=== PATIENT | female | born 1980 | race Caucasian/White ===

== ENCOUNTER 2024-09-23 05:12 | Observation (INO) | payer MEDICARE, OTHER ==
--- NOTE | 2024-09-23 06:07 | ERPHSYRPT ---
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 patient states that sysmptoms started yesterday and have gotten worse and she cannot get comfortable. denies lifting heavy objects or twisting or falling, pt rates pain 10/10. skin w/n/d, pulses normal, denies chest pain, has a productive cough, hypertensive, gait steady, patient doesn't appear to be in any distress at this time. Timing/Duration: yesterday Hx Tetanus, Diphtheria Vaccination/Date Given: No Hx Influenza Vaccination/Date Given: No Hx Pneumococcal Vaccination/Date Given: No <VICTOR MANUEL VILLAGOMEZ - Last Filed: 09/23/24 06:07> <SANTO BURNETT - Last Filed: 09/23/24 09:37> - History of Present Illness Physician History: The patient's had 2 days of what she describes as back pain. It is actually kind of in the epigastrium that radiates all around her trunk. She says that breathing makes it worse especially taking deep breaths then. She says its tight and stabbing it radiates from her low thoracic area up towards her cervical region in the distribution of the erector muscles. She also has some epigastric pain. She describes it as a band going around basically kind of where her diaphragm is. She said she is never had this before. It started about 2 days ago and it seems to have worsened. She does not have any vomiting but does have some occasional nausea. She has not had any diarrhea or anything like that. Eating does not seem to make it worse only deep breaths seem to really intensify the pain. I would not say she is dyspneic. (VICTOR MANUEL VILLAGOMEZ) Allergies/Adverse Reactions: cefaclor [From Ceclor] Allergy (Verified 09/23/24 05:51) Hives Penicillins Allergy (Verified 09/23/24 05:51) Hives Sulfa (Sulfonamide Antibiotics) Allergy (Verified 09/23/24 05:51) Hives Home Medications: Losartan Potassium 25 mg PO DAILY 09/23/24 [History] Propranolol HCl 10 mg PO BID PRN PRN 09/23/24 [History] Travel Risk - International Travel Have you traveled outside of the country in past 3 weeks: No - Emerging Infectious Disease Are you exhibiting symptoms associated with any current EIDs: No <VICTOR MANUEL VILLAGOMEZ - Last Filed: 09/23/24 06:07> - Review of Systems Constitutional: No Symptoms Respiratory: No Symptoms Cardiac: No Symptoms Genitourinary Symptoms: No Symptoms Skin: No Symptoms <VICTOR MANUEL VILLAGOMEZ - Last Filed: 09/23/24 06:07> - Past Medical History Neurological History: Migraines, Seizures ENT History: No Pertinent History Cardiac History: Hypertension, Other Respiratory History: Asthma Endocrine Medical History: Other Musculoskeletal History: No Pertinent History GI Medical History: No Pertinent History History: No Pertinent History Psycho-Social History: Anxiety, Depression, Panic Disorder Female Reproductive Disorders: No Pertinent History Other Medical History: murmer, hysterectomy, pre-diabetic - Past Surgical History Past Surgical History: Yes Neuro Surgical History: No Pertinent History Cardiac: No Pertinent History Respiratory: No Pertinent History Gastrointestinal: No Pertinent History Genitourinary: No Pertinent History Musculoskeletal: No Pertinent History Female Surgical History: Hysterectomy, Section Other Surgical History: x 3, carpal tunnel surgery in 2009, endoscopy 1998 - Female History Hx Last Menstrual Period: 2019 Hx Now: No (hysterectomy) - Social History Smoking Status: Current every day smoker Exposure to second hand smoke: No Drug Use: none - Social Determinants of Health Will the patient participate in the screening: Yes Do you worry about a steady place to live?: No Do you have any problems with any of the following?: No known problems In the past 12 months,have you had to go without utilities?: No Transportation Issues: No Has anyone in your support network made you feel unsafe?: No Have you or anyone in your house had to go w/o enough food: No <VICTOR MANUEL VILLAGOMEZ - Last Filed: 09/23/24 06:07> - Physical Exam General Appearance: no apparent distress Respiratory Exam: normal breath sounds, lungs clear, No chest tenderness, No respiratory distress Cardiovascular Exam: regular rate/rhythm, normal heart sounds Gastrointestinal/Abdomen Exam: soft, tenderness (Tenderness in the epigastrium and the right upper and left upper quadrants) Back Exam: normal inspection Extremity Exam: normal inspection Neurologic Exam: alert, oriented x 3, cooperative, normal mood/affect Skin Exam: normal color, warm, dry SpO2: 98 <VICTOR MANUEL VILLAGOMEZ S. - Last Filed: 09/23/24 06:07> - Nursing Vital Signs Nursing Vital Signs: Initial Vital Signs Temperature 98 F 09/23/24 05:31 Pulse Rate 84 09/23/24 05:31 Respiratory Rate 17 09/23/24 05:31 Blood Pressure 169/99 09/23/24 05:31 O2 Sat by Pulse Oximetry 98 09/23/24 05:31 Pain Scale Pain Intensity [Back] 10 Pain Intensity 4 Ordered Tests: Active Orders 24 hr Category Date Time Status EKG-ER Only STAT Care 09/23/24 06:02 Active ABDOMEN AND PELVIS W CONTRAST [CT] Stat Exams 09/23/24 06:02 Completed CHEST 1 VIEW (PORTABLE) Stat Exams 09/23/24 06:03 Completed CTA CHEST W AND/OR WO [CT] Stat Exams 09/23/24 07:35 Ordered CBC W DIFF Stat Lab 09/23/24 06:28 Completed CMP Stat Lab 09/23/24 06:28 Completed D-DIMER QUANTITATIVE Stat Lab 09/23/24 06:28 Completed LIPASE Stat Lab 09/23/24 06:28 Completed TROPONIN Q4H Lab 09/23/24 06:28 Completed TROPONIN Q4H Lab 09/23/24 10:15 Ordered TROPONIN Q4H Lab 09/23/24 14:15 Ordered UA W/RFX UR CULTURE Stat Lab 09/23/24 07:57 Completed Medication Summary Discontinued Medications Generic Name Dose Route Start Last Admin Trade Name José Luisq PRN Reason Stop Dose Admin Morphine Sulfate 2 mg 09/23/24 07:52 09/23/24 08:01 Morphine Sulfate 2 Mg/Ml Inj IV 09/23/24 07:53 2 mg STAT ONE Administration Morphine Sulfate Confirm 09/23/24 07:54 Morphine Sulfate 2 Mg/Ml Inj Administered 09/23/24 07:55 Dose 2 mg .ROUTE .STK-MED ONE Ondansetron HCl 4 mg 09/23/24 07:52 09/23/24 08:01 Ondansetron Hcl 4 Mg/2 Ml Vial IV 09/23/24 07:53 4 mg STAT ONE Administration Ondansetron HCl Confirm 09/23/24 07:54 Ondansetron Hcl 4 Mg/2 Ml Vial Administered 09/23/24 07:55 Dose 4 mg .ROUTE .STK-[facility] ONE Lab/Rad Data: Laboratory Result Diagrams 09/23/24 06:28 09/23/24 06:28 Laboratory Results 09/23/24 09/23/24 09/23/24 Range/Units 08:15 07:57 06:28 WBC (3.98-10.04) x10^3/uL RBC (3.93-5.22) x10^6/uL Hgb (11.2-15.7) g/dL Hct (34.1-44.9) % MCV (79.4-94.8) fL MCH (25.6-32.2) pg MCHC (32.2-35.5) g/dL RDW (11.7-14.4) % Plt Count (182-369) x10^3/uL MPV (9.4-12.3) fL Gran % (34.0-71.1) % Immature Gran % (Auto) (0.001-0.429) % Nucleat RBC Rel Count (0.00-0.2) % Eos # (Auto) (0.04-0.36) x10^3/uL Immature Gran # (Auto) (0.001-0.031) x10^3u/L Absolute Lymphs (auto) (1.18-3.74) x10^3/uL Absolute Monos (auto) (0.24-0.86) x10^3/uL Absolute Nucleated RBC (0.00-0.012) x10^3u/L Lymphocytes % (19.3-51.7) % Monocytes % (4.7-12.5) % Eosinophils % (0.7-5.8) % Basophils % (0.1-1.2) % Absolute Granulocytes (1.56-6.13) x10^3/uL Basophils # (0.01-0.08) x10^3/uL D-Dimer 0.69 H* (0.0-0.50) mg/L Sodium (135-145) mmol/L Potassium (3.5-5.1) mmol/L Chloride (98-107) mmol/L Carbon Dioxide (22-30) mmol/L Anion Gap (5-15) MEQ/L BUN (7-17) mg/dL Creatinine (0.52-1.04) mg/dL Estimated GFR ML/MIN Glucose (74-106) mg/dL Calcium (8.4-10.2) mg/dL Total Bilirubin (0.2-1.3) mg/dL AST (14-36) U/L ALT (0-35) U/L Alkaline Phosphatase (38-126) U/L Troponin I (0.000-0.033) ng/mL Serum Total Protein (6.3-8.2) g/dL Albumin (3.5-5.0) g/dL Lipase (23-300) U/L Urine Color Yellow (Yellow) Urine Appearance Clear (Clear) Urine pH 7.0 (4.6-8.0) Ur Specific [place] >=1.030 A (1.005-1.030) Urine Protein Negative (Negative) Urine Glucose (UA) Negative (Negative) mg/dL Urine Ketones Negative (Negative) Urine Blood Negative (Negative) Urine Nitrite Negative (Negative) Urine Bilirubin Negative (Negative) Urine Urobilinogen 0.2 (0.2) mg/dL Ur Leukocyte Esterase Negative (Negative) U Hyaline Cast (Auto) NONE SEEN (0-2) /LPF Urine Microscopic RBC 0-2 (0-5) /HPF Urine Microscopic WBC 0-2 (0-5) /HPF Ur Epithelial Cells None Seen (None Seen) /HPF Urine Bacteria None Seen (None Seen) /HPF Urine Culture Reflexed NO (NO) Influenza Type A Ag NEGATIVE (NEGATIVE) Influenza Type B Ag NEGATIVE (NEGATIVE) RSV (PCR) NEGATIVE (NEGATIVE) SARS-CoV-2 (PCR) NEGATIVE (NEGATIVE) 09/23/24 09/23/24 09/23/24 Range/Units 06:28 06:28 06:28 WBC 11.5 H (3.98-10.04) x10^3/uL RBC 4.54 (3.93-5.22) x10^6/uL Hgb 11.7 (11.2-15.7) g/dL Hct 37.1 (34.1-44.9) % MCV 81.7 (79.4-94.8) fL MCH 25.8 (25.6-32.2) pg MCHC 31.5 L (32.2-35.5) g/dL RDW 15.3 H (11.7-14.4) % Plt Count 331 (182-369) x10^3/uL MPV 9.9 (9.4-12.3) fL Gran % 67.5 (34.0-71.1) % Immature Gran % (Auto) 0.3 (0.001-0.429) % Nucleat RBC Rel Count 0.0 (0.00-0.2) % Eos # (Auto) 0.20 (0.04-0.36) x10^3/uL Immature Gran # (Auto) 0.04 H (0.001-0.031) x10^3u/L Absolute Lymphs (auto) 2.52 (1.18-3.74) x10^3/uL Absolute Monos (auto) 0.95 H (0.24-0.86) x10^3/uL Absolute Nucleated RBC 0.00 (0.00-0.012) x10^3u/L Lymphocytes % 21.9 (19.3-51.7) % Monocytes % 8.3 (4.7-12.5) % Eosinophils % 1.7 (0.7-5.8) % Basophils % 0.3 (0.1-1.2) % Absolute Granulocytes 7.75 H (1.56-6.13) x10^3/uL Basophils # 0.04 (0.01-0.08) x10^3/uL D-Dimer (0.0-0.50) mg/L Sodium 139 (135-145) mmol/L Potassium 4.2 (3.5-5.1) mmol/L Chloride 104 (98-107) mmol/L Carbon Dioxide 25 (22-30) mmol/L Anion Gap 13.9 (5-15) MEQ/L BUN 12 (7-17) mg/dL Creatinine 0.53 (0.52-1.04) mg/dL Estimated GFR 115.4 ML/MIN Glucose 100 (74-106) mg/dL Calcium 8.4 (8.4-10.2) mg/dL Total Bilirubin 0.30 (0.2-1.3) mg/dL AST 31 (14-36) U/L ALT 22 (0-35) U/L Alkaline Phosphatase 87 (38-126) U/L Troponin I < 0.012 (0.000-0.033) ng/mL Serum Total Protein 6.6 (6.3-8.2) g/dL Albumin 3.8 (3.5-5.0) g/dL Lipase 191 (23-300) U/L Urine Color (Yellow) Urine Appearance (Clear) Urine pH (4.6-8.0) Ur Specific [place] (1.005-1.030) Urine Protein (Negative) Urine Glucose (UA) (Negative) mg/dL Urine Ketones (Negative) Urine Blood (Negative) Urine Nitrite (Negative) Urine Bilirubin (Negative) Urine Urobilinogen (0.2) mg/dL Ur Leukocyte Esterase (Negative) U Hyaline Cast (Auto) (0-2) /LPF Urine Microscopic RBC (0-5) /HPF Urine Microscopic WBC (0-5) /HPF Ur Epithelial Cells (None Seen) /HPF Urine Bacteria (None Seen) /HPF Urine Culture Reflexed (NO) Influenza Type A Ag (NEGATIVE) Influenza Type B Ag (NEGATIVE) RSV (PCR) (NEGATIVE) SARS-CoV-2 (PCR) (NEGATIVE) <VICTOR MANUEL VILLAGOMEZ - Last Filed: 09/23/24 06:07> <SANTO BURNETT - Last Filed: 09/23/24 09:37> - Progress Progress Note: On the differential diagnosis was biliary colic, reflux, cardiac chest pain, pulmonary embolism, pneumonia 09/23/24 06:07 (VICTOR MANUEL VILLAGOMEZ) 09/23/24 07:55 d dimer elevated - I attempted to order CTA chest for PE r/o, was informed by radiology dept that we would not be allowed to give pt contrast again for 24h still awaiting CT abd/pel scan 09/23/24 08:35 CT abd/pel showed: no acute intra abdominal pathology suspected cholelithiasis, US recommended for better eval moderate hepatomegaly 09/23/24 09:20 I spoke w/ Dr Salgado who is willing to consult on pt's case for possible cholecystitis will again discuss admission w/ hospitalist i spoke w/ Dr Galloway who is willing to accept for obs recommends giving dose of zosyn to cover for possible intra abdominal infection associated w/ cholecystitis 09/23/24 09:34 pt has mild allergy to early generation cephalosporins (hives), will continue w/ zosyn and treat allergic rxn if arises (SANTO BURNETT) Medical Desision Making - Diagnostic Testing Diagnostic test were ordered, analyzed, and reviewed by me: Yes Radiological Interpretation: Reviewed by me, Teleradiologist Report - Risk of complications The pt has a high risk of morbidity or mortality based on: Decision regarding hospitilization or escalation of hosp level of care <SANTO BURNETT - Last Filed: 09/23/24 09:37> <VICTOR MANUEL VILLAGOMEZ - Last Filed: 09/23/24 06:07> - Departure Departure Disposition: Observation Critical Care Time: No <SANTO BURNETT - Last Filed: 09/23/24 09:37> - Departure Clinical Impression: Cholelithiasis Qualifiers: Cholelithiasis location: gallbladder Cholecystitis presence: with cholecystitis Cholecystitis acuity: acute Biliary obstruction: without biliary obstruction Qualified Code(s): K80.00 - Calculus of gallbladder with acute cholecystitis without obstruction Condition: Stable Referrals: ALINA FONSECA MD [Primary Care Provider] - Follow up/PCP as directed
[2024-09-23 06:34] LABS: Absolute Neutrophil Ct (ANC) 7.75 x10^3/uL (1.56-6.13); BASOPHIL % 0.3 % (0.1-1.2); Basophil (Absolute #) 0.04 x10^3/uL (0.01-0.08); Eosinophil % 1.7 % (0.7-5.8); Hematocrit 37.1 % (34.1-44.9); Hemoglobin 11.7 g/dL (11.2-15.7); IMMATURE GRAN # 0.04 x10^3u/L (0.001-0.031); IMMATURE GRAN % 0.3 % (0.001-0.429); Lymphocyte (Absolute #) 2.52 x10^3/uL (1.18-3.74); Lymphocytes % 21.9 % (19.3-51.7); Mean Cell Volume 81.7 fL (79.4-94.8); Mean Corpuscular Hemoglobin 25.8 pg (25.6-32.2); Mean Corpuscular Hgb Concent. 31.5 g/dL (32.2-35.5); Mean Platelet Volume 9.9 fL (9.4-12.3); Monocyte (Absolute #) 0.95 x10^3/uL (0.24-0.86); Monocytes % 8.3 % (4.7-12.5); Neutrophil % 67.5 % (34.0-71.1); Platelet Count 331 x10^3/uL (182-369); Red Blood Count 4.54 x10^6/uL (3.93-5.22); Red Cell Distribution Width 15.3 % (11.7-14.4); White Blood Count 11.5 x10^3/uL (3.98-10.04)
[2024-09-23 06:49] LABS: ALBUMIN 3.8 g/dL (3.5-5.0); ANION GAP 13.9 MEQ/L (5-15); BILIRUBIN,TOTAL 0.3 mg/dL (0.2-1.3); Calcium 8.4 mg/dL (8.4-10.2); Creatinine 1 0.53 mg/dL (0.52-1.04); EST GLOMERULAR FILTRATION RATE 115.4 ML/MIN; Potassium 4.2 mmol/L (3.5-5.1); Total Protein 6.6 g/dL (6.3-8.2)
[2024-09-23] MEDS ORDERED: MORPHINE SULFATE 2 MG INJ ONE (07:54)
[2024-09-23] MEDS ORDERED: Zofran 4 MG/2 ML VIAL ONE (07:54)
[2024-09-23] MEDS: Zofran 4 MG/2 ML VIAL IV ONE (08:01)
[2024-09-23] MEDS: MORPHINE SULFATE 2 MG INJ IV ONE (08:01)
[2024-09-23 08:19] LABS: Appearance Clear (Clear); Bacteria None Seen /HPF (None Seen); Bilirubin Negative (Negative); Blood Negative (Negative); Epithelial Cells None Seen /HPF (None Seen); Glucose, Urine Negative (Negative); Hyaline Casts NONE SEEN /LPF (0-2); Ketones Negative (Negative); Leukocyte Esterase Negative (Negative); Nitrite Negative (Negative); Protein,Urine Dip Negative (Negative); RBC 0-2 /HPF (0-5); Specific Gravity >=1.030 (1.005-1.030); Urobilinogen 0.2 mg/dL (0.2); WBC 0-2 /HPF (0-5)
--- NOTE | 2024-09-23 08:24 | XRAY ---
Indication: Chest and abdomen pain. Comparison: None Portable chest demonstrates normal heart and lungs with incidental small right lower lobe calcified granuloma. Bony thorax intact with mild degenerative changes. No acute findings.
--- NOTE | 2024-09-23 08:36 | XRAY ---
CLINICAL HISTORY: upper abd pain COMPARISON: No prior studies are available for comparison. TECHNIQUE: CT of the abdomen and pelvis was performed with contrast, with the following protocol: axial images with, and reconstructed coronal and sagittal images. 80cc of isovue 370 was administered intravenously. One of the following dose reduction techniques was utilized for this exam: Automated exposure control, adjustment of the mA and/or kV according to patient size, and use of iterative reconstruction. CTDI: 17.73 mGy, DLP: 882.08 mGy-cm. FINDINGS: Abdomen: Liver: Moderate hepatomegaly measuring 19 cm No focal lesions, cysts, or masses were identified. Hepatic vasculature and biliary ducts are unremarkable. Gallbladder and Biliary System: The gallbladder is normally distended with suspected radiolucent calculi. No wall thickening, or pericholecystic fluid were identified. The common bile duct is normal in caliber without dilation. Pancreas: Pancreatic head, body, and tail are visualized and appear normal in size and density. No pancreatic masses or calcifications were noted. The pancreatic duct is not dilated. Spleen: Normal in size, shape, and density. No splenic lesions or masses were identified. Appendix: Is not distinctively seen yet no inflammatory changes is noted in the right iliac fossa. Kidneys and Adrenal Glands: Both kidneys are normal in size, shape, and position. Cortical thickness is within normal limits. No renal calculi or hydronephrosis. Adrenal glands are unremarkable with no evidence of masses or hyperplasia. Pelvis: Urinary Bladder: Normal in contour and wall thickness. No intraluminal lesions were identified. Uterus: is not visualized Ovaries: Not well visualized but no gross abnormalities noted. Peritoneal and Retroperitoneal Structures: No free fluid or abnormal fluid collections were identified within the abdomen or pelvis. No lymphadenopathy was noted. Bowel: The visualized bowel loops are normal in caliber and appearance. No evidence of bowel obstruction or wall thickening. Bones and Soft Tissues: Minimal periaortic and cristina-mesenteric fat stranding likely nonspecific Pelvic bones and soft tissues are unremarkable. No fractures or abnormal masses were identified. Calcified granulomas about two is noted in the right lower lung lobe. IMPRESSION: 1. No acute intra-abdominal pathology. 2. Suspected cholelithiasis, ultrasound is advised for better evaluation. 3. Moderate hepatomegaly. Electronically Signed by: Meryl Fox MD. (09/23/2024 08:30:37 EST)
[2024-09-23 08:58] LABS: INFLUENZA A NEGATIVE (NEGATIVE); INFLUENZA B NEGATIVE (NEGATIVE); RESPIRATORY SYNCTIAL VIRUS NEGATIVE (NEGATIVE); SARS-CoV-2 Xpert Express NEGATIVE (NEGATIVE)
[2024-09-23] MEDS ORDERED: PIPERACILLIN/TAZOBACTAM IV ONE (09:40)
[2024-09-23] MEDS: PIPERACILLIN/TAZOBACTAM 3.375 GM in Sodium Chloride 100ML MINI-BAG PLUS 100 ML IV ONE (09:41)
[2024-09-23] MEDS ORDERED: Sodium Chloride 100ML MINI-BAG PLUS 100 ML IV ONE (09:41)
--- NOTE | 2024-09-23 10:23 | PCM.HP ---
<YENY WATERMAN - Last Filed: 09/23/24 10:17> History of Present Illness - Chief Complaint Chief Complaint: cholelithiasis Date: 09/23/24 History of Present Illness: is a 44 year old female with PMHX of daily smoking, migraines, seizures, hypertension, asthma, anxiety, depression, panic disorder, a heart murmur, obesity, and pre-diabetes. The patient presented to the ER today with a 2-day history of what she describes as back pain, which is actually more localized in the epigastrium and radiates around her trunk. She reports that deep breathing, particularly taking deep breaths, worsens the pain. The pain is described as tight and stabbing, radiating from the low thoracic region up towards the cervical area, following the distribution of the erector muscles. Additionally, she has some epigastric discomfort, which she describes as a band- like sensation around her diaphragm. This is a new symptom for her, as she has never experienced anything like it before. The pain started approximately 2 days ago and has been progressively worsening. The patient denies any vomiting, although she does experience occasional nausea. She has not had diarrhea or similar gastrointestinal symptoms. Eating does not seem to aggravate the pain, with deep breaths being the main trigger for intensifying the discomfort. A CT of the abdomen and pelvis revealed no acute intra-abdominal pathology, but it did suggest suspected cholelithiasis, with an ultrasound recommended for further evaluation. The scan also showed moderate hepatomegaly. Dr. Salgado was consulted by the ER physician and is willing to assist with the patients case for possible cholecystitis. The plan is to initiate IV antibiotics per surgery protocol and start intravenous fluids. However, an ultrasound cannot be performed at this facility over the weekend. - Review of Systems Constitutional: No Fever, No Chills Eyes: No Symptoms Ears, Nose, & Throat: No Symptoms Respiratory: No Cough, No Short Of Breath Cardiac: No Chest Pain, No Edema, No Syncope Abdominal/Gastrointestinal: Abdominal Pain, No Nausea, No Vomiting, No Diarrhea Genitourinary Symptoms: No Dysuria Musculoskeletal: Back Pain, No Neck Pain Skin: No Rash Neurological: No Dizziness, No Focal Weakness, No Sensory Changes Psychological: No Symptoms Endocrine: No Symptoms Hematologic/Lymphatic: No Symptoms Immunological/Allergic: No Symptoms Medications & Allergies Home Medications: Home Medication List Losartan Potassium 25 mg PO DAILY 09/23/24 [History Confirmed 09/23/24] Propranolol HCl 10 mg PO BID PRN PRN 09/23/24 [History Confirmed 09/23/24] Allergies/Adverse Reactions: Allergies Allergy/AdvReac Type Severity Reaction Status Date / Time cefaclor [From [facility]] Allergy Hives Verified 09/23/24 10:00 Penicillins Allergy Hives Verified 09/23/24 10:00 Sulfa (Sulfonamide Allergy Hives Verified 09/23/24 10:00 Antibiotics) - Past Medical History Neurological History: Migraines, Seizures ENT History: No Pertinent History Cardiac History: Hypertension, Other Respiratory History: Asthma Endocrine Medical History: Other Musculoskelatal History: No Pertinent History GI Medical History: No Pertinent History History: No Pertinent History Pyscho-Social History: Anxiety, Depression, Panic Disorder Reproductive Disorders: No Pertinent History Comment: murmer, hysterectomy, pre-diabetic - Female History Hx Last Menstrual Period: 2020 Are you now?: No (hysterectomy) - Past Surgical History Past Surgical History: Yes Neuro Surgical History: No Pertinent History Cardiac History: No Pertinent History Respiratory Surgery: No Pertinent History GI Surgical History: No Pertinent History Genitourinary Surgical Hx: No Pertinent History Musculskeletal Surgical Hx: No Pertinent History Female Surgical History: Hysterectomy, Section Other Surgical History: x 3, carpal tunnel surgery in 2009, endoscopy 1998 - Social History Smoking Status: Current every day smoker Exposure to second hand smoke: No Alcohol: None Drug Use: none - Social Determinants of Health Will the patient participate in the screening: Yes Do you worry about a steady place to live?: No Do you have any problems with any of the following?: No known problems In the past 12 months,have you had to go without utilities?: No Have you or anyone in your house had to go without enough: No Transportation Issues: No Has anyone in your support network made you feel unsafe?: No - Physical Exam Vital Signs: Vital Signs - 24 hr Temp Pulse Resp BP BP Pulse Ox 09/23/24 09:58 98.0 F 76 16 106/55 96 09/23/24 09:30 76 26 H 145/93 96 09/23/24 09:00 89 147/85 93 L 09/23/24 08:30 156/84 94 L 09/23/24 08:03 76 158/88 98 09/23/24 07:44 73 145/85 98 09/23/24 07:40 3 L 18 99 09/23/24 07:33 80 18 99 09/23/24 06:30 157/91 09/23/24 06:08 98 09/23/24 06:00 79 12 156/96 09/23/24 05:31 98 F 84 17 169/99 98 General Appearance: no apparent distress, alert, obese Neurologic Exam: alert, oriented x 3, cooperative, normal mood/affect, nml cerebellar function, nml station & gait, sensation nml, No motor deficits Eye Exam: PERRL/EOMI, eyes nml inspection Ears, Nose, Throat Exam: normal ENT inspection, TMs normal, pharynx normal, moist mucous membranes Neck Exam: normal inspection, non-tender, supple, full range of motion Respiratory Exam: normal breath sounds, lungs clear, No respiratory distress Cardiovascular Exam: regular rate/rhythm, normal heart sounds, normal peripheral pulses, murmur Gastrointestinal/Abdomen Exam: soft, normal bowel sounds, tenderness (RUQ), No mass Back Exam: normal inspection, normal range of motion, No CVA tenderness, No vertebral tenderness Extremity Exam: normal inspection, normal range of motion, pelvis stable Skin Exam: normal color, warm, dry, No rash Lymphatic Exam: No adenopathy Results - Labs Lab/Micro Results: Lab Results-Last 24 Hours 09/23/24 09/23/24 09/23/24 Range/Units 06:28 06:28 06:28 WBC 11.5 H (3.98-10.04) x10^3/uL RBC 4.54 (3.93-5.22) x10^6/uL Hgb 11.7 (11.2-15.7) g/dL Hct 37.1 (34.1-44.9) % MCV 81.7 (79.4-94.8) fL MCH 25.8 (25.6-32.2) pg MCHC 31.5 L (32.2-35.5) g/dL RDW 15.3 H (11.7-14.4) % Plt Count 331 (182-369) x10^3/uL MPV 9.9 (9.4-12.3) fL Gran % 67.5 (34.0-71.1) % Immature Gran % (Auto) 0.3 (0.001-0.429) % Nucleat RBC Rel Count 0.0 (0.00-0.2) % Eos # (Auto) 0.20 (0.04-0.36) x10^3/uL Immature Gran # (Auto) 0.04 H (0.001-0.031) x10^3u/L Absolute Lymphs (auto) 2.52 (1.18-3.74) x10^3/uL Absolute Monos (auto) 0.95 H (0.24-0.86) x10^3/uL Absolute Nucleated RBC 0.00 (0.00-0.012) x10^3u/L Lymphocytes % 21.9 (19.3-51.7) % Monocytes % 8.3 (4.7-12.5) % Eosinophils % 1.7 (0.7-5.8) % Basophils % 0.3 (0.1-1.2) % Absolute Granulocytes 7.75 H (1.56-6.13) x10^3/uL Basophils # 0.04 (0.01-0.08) x10^3/uL D-Dimer (0.0-0.50) mg/L Sodium 139 (135-145) mmol/L Potassium 4.2 (3.5-5.1) mmol/L Chloride 104 (98-107) mmol/L Carbon Dioxide 25 (22-30) mmol/L Anion Gap 13.9 (5-15) MEQ/L BUN 12 (7-17) mg/dL Creatinine 0.53 (0.52-1.04) mg/dL Estimated GFR 115.4 ML/MIN Glucose 100 (74-106) mg/dL Calcium 8.4 (8.4-10.2) mg/dL Total Bilirubin 0.30 (0.2-1.3) mg/dL AST 31 (14-36) U/L ALT 22 (0-35) U/L Alkaline Phosphatase 87 (38-126) U/L Troponin I < 0.012 (0.000-0.033) ng/mL Serum Total Protein 6.6 (6.3-8.2) g/dL Albumin 3.8 (3.5-5.0) g/dL Lipase 191 (23-300) U/L Urine Color (Yellow) Urine Appearance (Clear) Urine pH (4.6-8.0) Ur Specific [place] (1.005-1.030) Urine Protein (Negative) Urine Glucose (UA) (Negative) mg/dL Urine Ketones (Negative) Urine Blood (Negative) Urine Nitrite (Negative) Urine Bilirubin (Negative) Urine Urobilinogen (0.2) mg/dL Ur Leukocyte Esterase (Negative) U Hyaline Cast (Auto) (0-2) /LPF Urine Microscopic RBC (0-5) /HPF Urine Microscopic WBC (0-5) /HPF Ur Epithelial Cells (None Seen) /HPF Urine Bacteria (None Seen) /HPF Urine Culture Reflexed (NO) Influenza Type A Ag (NEGATIVE) Influenza Type B Ag (NEGATIVE) RSV (PCR) (NEGATIVE) SARS-CoV-2 (PCR) (NEGATIVE) 09/23/24 09/23/24 09/23/24 Range/Units 06:28 07:57 08:15 WBC (3.98-10.04) x10^3/uL RBC (3.93-5.22) x10^6/uL Hgb (11.2-15.7) g/dL Hct (34.1-44.9) % MCV (79.4-94.8) fL MCH (25.6-32.2) pg MCHC (32.2-35.5) g/dL RDW (11.7-14.4) % Plt Count (182-369) x10^3/uL MPV (9.4-12.3) fL Gran % (34.0-71.1) % Immature Gran % (Auto) (0.001-0.429) % Nucleat RBC Rel Count (0.00-0.2) % Eos # (Auto) (0.04-0.36) x10^3/uL Immature Gran # (Auto) (0.001-0.031) x10^3u/L Absolute Lymphs (auto) (1.18-3.74) x10^3/uL Absolute Monos (auto) (0.24-0.86) x10^3/uL Absolute Nucleated RBC (0.00-0.012) x10^3u/L Lymphocytes % (19.3-51.7) % Monocytes % (4.7-12.5) % Eosinophils % (0.7-5.8) % Basophils % (0.1-1.2) % Absolute Granulocytes (1.56-6.13) x10^3/uL Basophils # (0.01-0.08) x10^3/uL D-Dimer 0.69 H* (0.0-0.50) mg/L Sodium (135-145) mmol/L Potassium (3.5-5.1) mmol/L Chloride (98-107) mmol/L Carbon Dioxide (22-30) mmol/L Anion Gap (5-15) MEQ/L BUN (7-17) mg/dL Creatinine (0.52-1.04) mg/dL Estimated GFR ML/MIN Glucose (74-106) mg/dL Calcium (8.4-10.2) mg/dL Total Bilirubin (0.2-1.3) mg/dL AST (14-36) U/L ALT (0-35) U/L Alkaline Phosphatase (38-126) U/L Troponin I (0.000-0.033) ng/mL Serum Total Protein (6.3-8.2) g/dL Albumin (3.5-5.0) g/dL Lipase (23-300) U/L Urine Color Yellow (Yellow) Urine Appearance Clear (Clear) Urine pH 7.0 (4.6-8.0) Ur Specific [place] >=1.030 A (1.005-1.030) Urine Protein Negative (Negative) Urine Glucose (UA) Negative (Negative) mg/dL Urine Ketones Negative (Negative) Urine Blood Negative (Negative) Urine Nitrite Negative (Negative) Urine Bilirubin Negative (Negative) Urine Urobilinogen 0.2 (0.2) mg/dL Ur Leukocyte Esterase Negative (Negative) U Hyaline Cast (Auto) NONE SEEN (0-2) /LPF Urine Microscopic RBC 0-2 (0-5) /HPF Urine Microscopic WBC 0-2 (0-5) /HPF Ur Epithelial Cells None Seen (None Seen) /HPF Urine Bacteria None Seen (None Seen) /HPF Urine Culture Reflexed NO (NO) Influenza Type A Ag NEGATIVE (NEGATIVE) Influenza Type B Ag NEGATIVE (NEGATIVE) RSV (PCR) NEGATIVE (NEGATIVE) SARS-CoV-2 (PCR) NEGATIVE (NEGATIVE) - Radiology Impressions Radiology Exams & Impressions: Radiology Procedures Category Date Time Status ABDOMEN AND PELVIS W CONTRAST [CT] Stat Exams 09/23/24 06:02 Completed CHEST 1 VIEW (PORTABLE) Stat Exams 09/23/24 06:03 Completed CHEST WITH CONTRAST [CT] Routine Exams 09/24/24 08:00 Ordered Assessment/Plan (1) Cholelithiasis Current Visit: Yes Status: Acute Qualifiers: Cholelithiasis location: gallbladder Cholecystitis presence: with cholecystitis Cholecystitis acuity: acute Biliary obstruction: without biliary obstruction Qualified Code(s): K80.00 - Calculus of gallbladder with acute cholecystitis without obstruction Assessment & Plan: - As seen on CT abd/pelvis - WBC 11.5 - GS consulted in ER- will see pt tomorrow per ER nurse - IV antibiotics and IVF - Possible US tomorrow if not taken to surgery today - IV pain meds PRN - IV antiemetics - NPO after midnight - Clear liquid diet for now - CBC, CMP reviewed - Pt received Zosyn in ER but is allergic- no allergic reaction so far- nurse to continue to monitor. (2) Hepatomegaly Current Visit: Yes Status: Acute Assessment & Plan: - as seen on CT - F/U OP with PCP for further evaluation - AST/ ALT WNL Code(s): R16.0 - HEPATOMEGALY, NOT ELSEWHERE CLASSIFIED (3) D-dimer, elevated Current Visit: Yes Status: Acute Assessment & Plan: - D-Dimer 0.69 - CT chest with PE protocol in AM -as she had contrast today and cannot have another imaging with contrast per radiology protocol Code(s): R79.89 - OTHER SPECIFIED ABNORMAL FINDINGS OF BLOOD CHEMISTRY (4) Depression with anxiety Current Visit: Yes Status: Chronic Assessment & Plan: - Stopped taking Vraylar d/t cost - Has an upcoming appointment with PCP and will discuss - Also willing to go to [facility] Code(s): F41.8 - OTHER SPECIFIED ANXIETY DISORDERS (5) Migraines Current Visit: Yes Status: Chronic Assessment & Plan: - continue propanolol - Pt reports + H/A today Code(s): G43.909 - MIGRAINE, UNSP, NOT INTRACTABLE, WITHOUT STATUS MIGRAINOSUS (6) Seizures Current Visit: Yes Status: Chronic Assessment & Plan: - Pt reports she has not had a seizure since she was young and is not taking medication for this dx Code(s): R56.9 - UNSPECIFIED CONVULSIONS (7) HTN (hypertension) Current Visit: Yes Status: Chronic Assessment & Plan: - BP stable - Continue home med Code(s): I10 - ESSENTIAL (PRIMARY) HYPERTENSION (8) Panic disorder Current Visit: Yes Status: Chronic Assessment & Plan: - see depression/anxiety plan above Code(s): F41.0 - PANIC DISORDER [EPISODIC PAROXYSMAL ANXIETY] (9) Obesity (BMI 30.0-34.9) Current Visit: Yes Status: Chronic Assessment & Plan: - advised diet and exercise control Code(s): E66.811 - OBESITY, CLASS 1 (10) Smoker Current Visit: Yes Status: Chronic Assessment & Plan: - Advised cessation - Nicotine patch VTE: SCD's PPI: protonix Next of KIN: S/O D/C plan: 1-2 days Code status: Full Code(s): F17.200 - NICOTINE DEPENDENCE, UNSPECIFIED, UNCOMPLICATED <JAIDEN MARIEE - Last Filed: 09/23/24 18:45> History of Present Illness - Chief Complaint History of Present Illness: is a 44 year old female. - Physical Exam Vital Signs: Vital Signs - 24 hr Temp Pulse Resp BP BP Pulse Ox 09/23/24 16:00 97.6 F 70 18 140/76 96 09/23/24 12:00 97.9 F 68 15 124/72 97 09/23/24 09:58 98.0 F 76 16 106/55 96 09/23/24 09:30 76 26 H 145/93 96 09/23/24 09:00 89 147/85 93 L 09/23/24 08:30 156/84 94 L 09/23/24 08:03 76 158/88 98 09/23/24 07:44 73 145/85 98 09/23/24 07:40 3 L 18 99 09/23/24 07:33 80 18 99 09/23/24 06:30 157/91 09/23/24 06:08 98 09/23/24 06:00 79 12 156/96 09/23/24 05:31 98 F 84 17 169/99 98 Results - Labs Lab/Micro Results: Lab Results-Last 24 Hours 02/23/25 02/23/25 02/23/25 Range/Units 06:28 06:28 06:28 WBC 11.5 H (3.98-10.04) x10^3/uL RBC 4.54 (3.93-5.22) x10^6/uL Hgb 11.7 (11.2-15.7) g/dL Hct 37.1 (34.1-44.9) % MCV 81.7 (79.4-94.8) fL MCH 25.8 (25.6-32.2) pg MCHC 31.5 L (32.2-35.5) g/dL RDW 15.3 H (11.7-14.4) % Plt Count 331 (182-369) x10^3/uL MPV 9.9 (9.4-12.3) fL Gran % 67.5 (34.0-71.1) % Immature Gran % (Auto) 0.3 (0.001-0.429) % Nucleat RBC Rel Count 0.0 (0.00-0.2) % Eos # (Auto) 0.20 (0.04-0.36) x10^3/uL Immature Gran # (Auto) 0.04 H (0.001-0.031) x10^3u/L Absolute Lymphs (auto) 2.52 (1.18-3.74) x10^3/uL Absolute Monos (auto) 0.95 H (0.24-0.86) x10^3/uL Absolute Nucleated RBC 0.00 (0.00-0.012) x10^3u/L Lymphocytes % 21.9 (19.3-51.7) % Monocytes % 8.3 (4.7-12.5) % Eosinophils % 1.7 (0.7-5.8) % Basophils % 0.3 (0.1-1.2) % Absolute Granulocytes 7.75 H (1.56-6.13) x10^3/uL Basophils # 0.04 (0.01-0.08) x10^3/uL D-Dimer (0.0-0.50) mg/L Sodium 139 (135-145) mmol/L Potassium 4.2 (3.5-5.1) mmol/L Chloride 104 (98-107) mmol/L Carbon Dioxide 25 (22-30) mmol/L Anion Gap 13.9 (5-15) MEQ/L BUN 12 (7-17) mg/dL Creatinine 0.53 (0.52-1.04) mg/dL Estimated GFR 115.4 ML/MIN Glucose 100 (74-106) mg/dL Calcium 8.4 (8.4-10.2) mg/dL Total Bilirubin 0.30 (0.2-1.3) mg/dL AST 31 (14-36) U/L ALT 22 (0-35) U/L Alkaline Phosphatase 87 (38-126) U/L Troponin I < 0.012 (0.000-0.033) ng/mL Serum Total Protein 6.6 (6.3-8.2) g/dL Albumin 3.8 (3.5-5.0) g/dL Lipase 191 (23-300) U/L Urine Color (Yellow) Urine Appearance (Clear) Urine pH (4.6-8.0) Ur Specific [place] (1.005-1.030) Urine Protein (Negative) Urine Glucose (UA) (Negative) mg/dL Urine Ketones (Negative) Urine Blood (Negative) Urine Nitrite (Negative) Urine Bilirubin (Negative) Urine Urobilinogen (0.2) mg/dL Ur Leukocyte Esterase (Negative) U Hyaline Cast (Auto) (0-2) /LPF Urine Microscopic RBC (0-5) /HPF Urine Microscopic WBC (0-5) /HPF Ur Epithelial Cells (None Seen) /HPF Urine Bacteria (None Seen) /HPF Urine Culture Reflexed (NO) Influenza Type A Ag (NEGATIVE) Influenza Type B Ag (NEGATIVE) RSV (PCR) (NEGATIVE) SARS-CoV-2 (PCR) (NEGATIVE) 09/23/24 09/23/24 09/23/24 Range/Units 06:28 07:57 08:15 WBC (3.98-10.04) x10^3/uL RBC (3.93-5.22) x10^6/uL Hgb (11.2-15.7) g/dL Hct (34.1-44.9) % MCV (79.4-94.8) fL MCH (25.6-32.2) pg MCHC (32.2-35.5) g/dL RDW (11.7-14.4) % Plt Count (182-369) x10^3/uL MPV (9.4-12.3) fL Gran % (34.0-71.1) % Immature Gran % (Auto) (0.001-0.429) % Nucleat RBC Rel Count (0.00-0.2) % Eos # (Auto) (0.04-0.36) x10^3/uL Immature Gran # (Auto) (0.001-0.031) x10^3u/L Absolute Lymphs (auto) (1.18-3.74) x10^3/uL Absolute Monos (auto) (0.24-0.86) x10^3/uL Absolute Nucleated RBC (0.00-0.012) x10^3u/L Lymphocytes % (19.3-51.7) % Monocytes % (4.7-12.5) % Eosinophils % (0.7-5.8) % Basophils % (0.1-1.2) % Absolute Granulocytes (1.56-6.13) x10^3/uL Basophils # (0.01-0.08) x10^3/uL D-Dimer 0.69 H* (0.0-0.50) mg/L Sodium (135-145) mmol/L Potassium (3.5-5.1) mmol/L Chloride (98-107) mmol/L Carbon Dioxide (22-30) mmol/L Anion Gap (5-15) MEQ/L BUN (7-17) mg/dL Creatinine (0.52-1.04) mg/dL Estimated GFR ML/MIN Glucose (74-106) mg/dL Calcium (8.4-10.2) mg/dL Total Bilirubin (0.2-1.3) mg/dL AST (14-36) U/L ALT (0-35) U/L Alkaline Phosphatase (38-126) U/L Troponin I (0.000-0.033) ng/mL Serum Total Protein (6.3-8.2) g/dL Albumin (3.5-5.0) g/dL Lipase (23-300) U/L Urine Color Yellow (Yellow) Urine Appearance Clear (Clear) Urine pH 7.0 (4.6-8.0) Ur Specific [place] >=1.030 A (1.005-1.030) Urine Protein Negative (Negative) Urine Glucose (UA) Negative (Negative) mg/dL Urine Ketones Negative (Negative) Urine Blood Negative (Negative) Urine Nitrite Negative (Negative) Urine Bilirubin Negative (Negative) Urine Urobilinogen 0.2 (0.2) mg/dL Ur Leukocyte Esterase Negative (Negative) U Hyaline Cast (Auto) NONE SEEN (0-2) /LPF Urine Microscopic RBC 0-2 (0-5) /HPF Urine Microscopic WBC 0-2 (0-5) /HPF Ur Epithelial Cells None Seen (None Seen) /HPF Urine Bacteria None Seen (None Seen) /HPF Urine Culture Reflexed NO (NO) Influenza Type A Ag NEGATIVE (NEGATIVE) Influenza Type B Ag NEGATIVE (NEGATIVE) RSV (PCR) NEGATIVE (NEGATIVE) SARS-CoV-2 (PCR) NEGATIVE (NEGATIVE) 09/23/24 09/23/24 Range/Units 10:30 14:44 WBC (3.98-10.04) x10^3/uL RBC (3.93-5.22) x10^6/uL Hgb (11.2-15.7) g/dL Hct (34.1-44.9) % MCV (79.4-94.8) fL MCH (25.6-32.2) pg MCHC (32.2-35.5) g/dL RDW (11.7-14.4) % Plt Count (182-369) x10^3/uL MPV (9.4-12.3) fL Gran % (34.0-71.1) % Immature Gran % (Auto) (0.001-0.429) % Nucleat RBC Rel Count (0.00-0.2) % Eos # (Auto) (0.04-0.36) x10^3/uL Immature Gran # (Auto) (0.001-0.031) x10^3u/L Absolute Lymphs (auto) (1.18-3.74) x10^3/uL Absolute Monos (auto) (0.24-0.86) x10^3/uL Absolute Nucleated RBC (0.00-0.012) x10^3u/L Lymphocytes % (19.3-51.7) % Monocytes % (4.7-12.5) % Eosinophils % (0.7-5.8) % Basophils % (0.1-1.2) % Absolute Granulocytes (1.56-6.13) x10^3/uL Basophils # (0.01-0.08) x10^3/uL D-Dimer (0.0-0.50) mg/L Sodium (135-145) mmol/L Potassium (3.5-5.1) mmol/L Chloride (98-107) mmol/L Carbon Dioxide (22-30) mmol/L Anion Gap (5-15) MEQ/L BUN (7-17) mg/dL Creatinine (0.52-1.04) mg/dL Estimated GFR ML/MIN Glucose (74-106) mg/dL Calcium (8.4-10.2) mg/dL Total Bilirubin (0.2-1.3) mg/dL AST (14-36) U/L ALT (0-35) U/L Alkaline Phosphatase (38-126) U/L Troponin I < 0.012 < 0.012 (0.000-0.033) ng/mL Serum Total Protein (6.3-8.2) g/dL Albumin (3.5-5.0) g/dL Lipase (23-300) U/L Urine Color (Yellow) Urine Appearance (Clear) Urine pH (4.6-8.0) Ur Specific [place] (1.005-1.030) Urine Protein (Negative) Urine Glucose (UA) (Negative) mg/dL Urine Ketones (Negative) Urine Blood (Negative) Urine Nitrite (Negative) Urine Bilirubin (Negative) Urine Urobilinogen (0.2) mg/dL Ur Leukocyte Esterase (Negative) U Hyaline Cast (Auto) (0-2) /LPF Urine Microscopic RBC (0-5) /HPF Urine Microscopic WBC (0-5) /HPF Ur Epithelial Cells (None Seen) /HPF Urine Bacteria (None Seen) /HPF Urine Culture Reflexed (NO) Influenza Type A Ag (NEGATIVE) Influenza Type B Ag (NEGATIVE) RSV (PCR) (NEGATIVE) SARS-CoV-2 (PCR) (NEGATIVE) - Radiology Impressions Radiology Exams & Impressions: Radiology Procedures Category Date Time Status ABDOMEN AND PELVIS W CONTRAST [CT] Stat Exams 09/23/24 06:02 Completed CHEST 1 VIEW (PORTABLE) Stat Exams 09/23/24 06:03 Completed CHEST WITH CONTRAST [CT] Routine Exams 09/24/24 08:00 Ordered GALLBLADDER [US] Routine Exams 09/24/24 08:00 Ordered JORGE Encounter - JORGE Encounter Attestation JORGE Encounter Attestation: "RylyseenanddavisGATO Burns andaceiscussed pertinent aspects of their care with Yeny Shah agree with the history, physical exam (any modifications based on my personal exam will be noted below), assessment, and plan as outlined in original note. Please see immediately below for my summary of findings and additional assessment and plan along with any meaningful corrections/explanations to the Subjective/Objective portions of the JORGE note will be noted." My portion of the encounter took place via telemedicine. -Patient presenting with RUQ and back pain with mild leukocytosis. Cholelithiasis seen on CT. Gallbladder US could not be done on the weekend for further evaluation. Surgery consulted, recommend cholecystectomy which will be performed tomorrow. Continue levaquin/flagyl.
[2024-09-23] MEDS ORDERED: Inderal PO PRN (10:52)
[2024-09-23] MEDS: Lactated Ringers 1,000 ML IV SCH (11:18)
[2024-09-23] MEDS: Nicoderm CQ 21 MG TOP SCH (11:19)
[2024-09-23] MEDS: Levaquin 250MG/50ML D5W 250 MG/50 ML BAG IV SCH (11:19)
[2024-09-23] MEDS: MORPHINE SULFATE 2 MG INJ IV PRN (11:19)
[2024-09-23] MEDS: Zofran 4 MG/2 ML VIAL IV PRN (11:19)
[2024-09-23] MEDS: Cozaar 50 MG PO SCH (11:20)
[2024-09-23] MEDS: Protonix 20MG Tablet PO SCH (11:20)
[2024-09-23] MEDS: Levofloxacin 500MG/100ML D5W 500 MG/100 ML BAG IV SCH (11:22)
[2024-09-23] MEDS: FLAGYL 500 MG IVPB 500 MG/100 ML BAG IV SCH (15:49)
[2024-09-23] MEDS: TYLENOL 325 MG PO PRN (16:20)
[2024-09-24 05:07] LABS: Hematocrit 32.5 % (34.1-44.9); Hemoglobin 10.1 g/dL (11.2-15.7); Mean Cell Volume 81.7 fL (79.4-94.8); Mean Corpuscular Hemoglobin 25.4 pg (25.6-32.2); Mean Corpuscular Hgb Concent. 31.1 g/dL (32.2-35.5); Mean Platelet Volume 10.7 fL (9.4-12.3); Platelet Count 301 x10^3/uL (182-369); Red Blood Count 3.98 x10^6/uL (3.93-5.22); Red Cell Distribution Width 15.3 % (11.7-14.4); White Blood Count 8.4 x10^3/uL (3.98-10.04)
[2024-09-24 05:21] LABS: ALBUMIN 3.5 g/dL (3.5-5.0); BILIRUBIN,TOTAL 0.4 mg/dL (0.2-1.3); Calcium 8.6 mg/dL (8.4-10.2); Creatinine 1 0.51 mg/dL (0.52-1.04); EST GLOMERULAR FILTRATION RATE 116.5 ML/MIN; Potassium 4.2 mmol/L (3.5-5.1); Total Protein 6.5 g/dL (6.3-8.2)
[2024-09-24 07:36] VITALS: RESP 16
--- NOTE | 2024-09-24 09:02 | CONS ---
HISTORY OF PRESENT ILLNESS: The patient has had a couple days' complaint of midback pain, moves up and down, bilateral ribcage. She was coughing a little bit before. Her had the flu. Apparently, the patient was negative for the flu in the ER. She had a little bit of nausea but no real vomiting. No diarrhea. Mostly back pain. Occasional nausea. This has been going on for a couple days. PAST MEDICAL HISTORY: She has hypertension. She is a smoker. HOME MEDICATIONS: She has been on losartan, propranolol in the past. ALLERGIES: Ceclor, sulfa, and penicillin. PAST SURGICAL HISTORY: She had and carpal tunnel in the past. She had some endoscopy in the past. She had hysterectomy in the past. SOCIAL HISTORY: Smoker, 1 pack per day. Denies alcohol abuse. FAMILY HISTORY: Stroke, has some hypertension. REVIEW OF SYSTEMS: Twelve systems reviewed. Mainly the back pain. Not really having any significant abdominal pain. Some in low back, radiates upward. PHYSICAL EXAMINATION: VITAL SIGNS: Stable. Temperature 98, blood pressure 169/99, pulse 84. She has a history of hypertension. HEENT: Sclerae anicteric. Extraocular movements intact. Oral mucous membranes moist. NECK: No JVD. CARDIOVASCULAR: Regular rate and rhythm. RESPIRATORY: Equal excursion, nonlabored breathing. ABDOMEN: Soft. She does not seem to have specific tenderness in the right upper quadrant on my exam. No peritoneal signs. BACK: She is having pain in her back. SKIN: Dry. EXTREMITIES: No significant edema. NEUROLOGIC: Alert. PSYCHIATRIC: Appropriate mood and affect. LABORATORY DATA AND TESTS: CT scan films were reviewed. Radiologist did not found any acute process, possible cholelithiasis. Ultrasound is pending. No free air or free fluid. White count 11, hemoglobin 11.7, platelets 381,000. Her liver function tests were reportedly unremarkable. She does have hepatosplenomegaly on ultrasound. She may or may not have any gallstones. They recommended an ultrasound. She also has CT of the chest pending to rule out PE, to be done tomorrow apparently. IMPRESSION: Back pain, unclear etiology. Unsure whether she could possibly have some gallstones on CT. Ultrasound is pending. She also has a CT. The pain is mainly when she has deep inspiration, did not appear to be affected by eating. She does have an ultrasound pending. She has a CT of the chest because she had an elevated D-dimer. CT chest pending tomorrow to evaluate for PE. If her CT is negative for PE and she shows some cholelithiasis, would reevaluate her. Consider if she is a candidate, considering cholecystectomy this admission. If the ultrasound does not show any stones, we need to continue medical management. If the CT is negative for PE and she is having ultrasound, could consider doing a HIDA later in the week for further workup if she failed to improve. Otherwise, continue medical management at this point. We will have her n.p.o. after midnight and await her abdominal ultrasound, CT of the chest tomorrow.
--- NOTE | 2024-09-24 09:26 | PCM.NOTE ---
Date and Time: 09/24/24 0921 Subjective Assessment: 09/23/23 is a 44 year old female with PMHX of daily smoking, migraines, seizures, hypertension, asthma, anxiety, depression, panic disorder, a heart murmur, obesity, and pre-diabetes. The patient presented to the ER today with a 2-day history of what she describes as back pain, which is actually more localized in the epigastrium and radiates around her trunk. She reports that deep breathing, particularly taking deep breaths, worsens the pain. The pain is described as tight and stabbing, radiating from the low thoracic region up towards the cervical area, following the distribution of the erector muscles. Additionally, she has some epigastric discomfort, which she describes as a band- like sensation around her diaphragm. This is a new symptom for her, as she has never experienced anything like it before. The pain started approximately 2 days ago and has been progressively worsening. The patient denies any vomiting, although she does experience occasional nausea. She has not had diarrhea or similar gastrointestinal symptoms. Eating does not seem to aggravate the pain, with deep breaths being the main trigger for intensifying the discomfort. A CT of the abdomen and pelvis revealed no acute intra-abdominal pathology, but it did suggest suspected cholelithiasis, with an ultrasound recommended for further evaluation. The scan also showed moderate hepatomegaly. Dr. Salgado was consulted by the ER physician and is willing to assist with the patients case for possible cholecystitis. The plan is to initiate IV antibiotics per surgery protocol and start intravenous fluids. However, an ultrasound cannot be performed at this facility over the weekend. 09/24/24 Pt resting in bed. She continues to have abd pain 6/10, sharp and aching under rib cage BL. Pain meds help, moving makes it worse. She is to have a CT chest with PE protocol today to r/o PE as d-dimer slightly elevated on admission. She ernesto also have a GB US today. After those 2 test surgery to consider cholecystectomy. Continue IV fluids, IV antibiotics, and IV narcotic pain meds PRN. - Review of Systems Constitutional: No Fever, No Chills Eyes: No Symptoms Ears, Nose, & Throat: No Symptoms Respiratory: No Cough, No Short Of Breath Cardiac: No Chest Pain, No Edema, No Syncope Abdominal/Gastrointestinal: Abdominal Pain, No Nausea, No Vomiting, No Diarrhea Genitourinary Symptoms: No Dysuria Musculoskeletal: No Back Pain, No Neck Pain Skin: No Rash Neurological: No Dizziness, No Focal Weakness, No Sensory Changes Psychological: No Symptoms Endocrine: No Symptoms Hematologic/Lymphatic: No Symptoms Immunological/Allergic: No Symptoms Objective Exam General Appearance: no apparent distress, alert Neurologic Exam: alert, oriented x 3, cooperative, normal mood/affect, nml cerebellar function, sensation nml, No motor deficits Skin Exam: normal color, warm, dry Eye Exam: PERRL, EOMI, eyes nml inspection Ears, Nose, Throat Exam: normal ENT inspection, pharynx normal, moist mucous membranes Neck Exam: normal inspection, non-tender, supple, full range of motion Respiratory Exam: normal breath sounds, lungs clear, No respiratory distress Cardiovascular Exam: regular rate/rhythm, normal heart sounds Gastrointestinal/Abdomen Exam: soft, tenderness, distention, No mass Extremity Exam: normal inspection, normal range of motion Back Exam: normal inspection, normal range of motion, No CVA tenderness, No vertebral tenderness Pelvic Exam: deferred Rectal Exam: deferred Objective Data Vital Signs: Vital Signs - 24 hr Temp Pulse Resp BP BP Pulse Ox 09/24/24 07:35 98.9 F 67 16 138/80 99 09/24/24 07:04 95 09/24/24 04:00 97.8 F 68 17 172/79 98 09/24/24 00:00 97.6 F 80 20 134/72 97 09/23/24 23:09 99 09/23/24 20:00 97.6 F 79 18 142/69 98 09/23/24 16:00 97.6 F 70 18 140/76 96 09/23/24 12:00 97.9 F 68 15 124/72 97 09/23/24 09:58 98.0 F 76 16 106/55 96 09/23/24 09:30 76 26 H 145/93 96 Pain Assessment - Last Documented Pain Intensity [Back] 10 Pain Intensity 8 Pain Scale Used 0-10 Pain Scale Intake and Output: Intake & Output 09/21/24 09/22/24 09/23/24 09/24/24 11:59 11:59 11:59 11:59 Intake Total 2591 Balance 2591 Weight 77.6 kg 77.5 kg Lab Results: Lab Results-Last 24 Hours 0209/23/24 09/24/24 Range/Units 10:30 14:44 04:15 WBC 8.4 (3.98-10.04) x10^3/uL RBC 3.98 (3.93-5.22) x10^6/uL Hgb 10.1 L (11.2-15.7) g/dL Hct 32.5 L (34.1-44.9) % MCV 81.7 (79.4-94.8) fL MCH 25.4 L (25.6-32.2) pg MCHC 31.1 L (32.2-35.5) g/dL RDW 15.3 H (11.7-14.4) % Plt Count 301 (182-369) x10^3/uL MPV 10.7 (9.4-12.3) fL Sodium (135-145) mmol/L Potassium (3.5-5.1) mmol/L Chloride (98-107) mmol/L Carbon Dioxide (22-30) mmol/L Anion Gap (5-15) MEQ/L BUN (7-17) mg/dL Creatinine (0.52-1.04) mg/dL Estimated GFR ML/MIN Glucose (74-106) mg/dL Calcium (8.4-10.2) mg/dL Total Bilirubin (0.2-1.3) mg/dL AST (14-36) U/L ALT (0-35) U/L Alkaline Phosphatase (38-126) U/L Troponin I < 0.012 < 0.012 (0.000-0.033) ng/mL Serum Total Protein (6.3-8.2) g/dL Albumin (3.5-5.0) g/dL 09/24/24 Range/Units 04:15 WBC (3.98-10.04) x10^3/uL RBC (3.93-5.22) x10^6/uL Hgb (11.2-15.7) g/dL Hct (34.1-44.9) % MCV (79.4-94.8) fL MCH (25.6-32.2) pg MCHC (32.2-35.5) g/dL RDW (11.7-14.4) % Plt Count (182-369) x10^3/uL MPV (9.4-12.3) fL Sodium 137 (135-145) mmol/L Potassium 4.2 (3.5-5.1) mmol/L Chloride 105 (98-107) mmol/L Carbon Dioxide 25 (22-30) mmol/L Anion Gap 11.0 (5-15) MEQ/L BUN 7 (7-17) mg/dL Creatinine 0.51 L (0.52-1.04) mg/dL Estimated GFR 116.5 ML/MIN Glucose 96 (74-106) mg/dL Calcium 8.6 (8.4-10.2) mg/dL Total Bilirubin 0.40 (0.2-1.3) mg/dL AST 23 (14-36) U/L ALT 19 (0-35) U/L Alkaline Phosphatase 74 (38-126) U/L Troponin I (0.000-0.033) ng/mL Serum Total Protein 6.5 (6.3-8.2) g/dL Albumin 3.5 (3.5-5.0) g/dL Radiology Exams: Radiology Procedures Category Date Time Status ABDOMEN AND PELVIS W CONTRAST [CT] Stat Exams 09/23/24 06:02 Completed CHEST 1 VIEW (PORTABLE) Stat Exams 09/23/24 06:03 Completed CHEST WITH CONTRAST [CT] Routine Exams 09/24/24 08:00 Taken GALLBLADDER [US] Routine Exams 09/24/24 08:00 Ordered Assessment/Plan (1) Cholelithiasis Current Visit: Yes Status: Acute Qualifiers: Cholelithiasis location: gallbladder Cholecystitis presence: with cholecystitis Cholecystitis acuity: acute Biliary obstruction: without biliary obstruction Qualified Code(s): K80.00 - Calculus of gallbladder with acute cholecystitis without obstruction (2) Hepatomegaly Current Visit: Yes Status: Acute Code(s): R16.0 - HEPATOMEGALY, NOT ELSEWHERE CLASSIFIED (3) D-dimer, elevated Current Visit: Yes Status: Acute Code(s): R79.89 - OTHER SPECIFIED ABNORMAL FINDINGS OF BLOOD CHEMISTRY (4) Depression with anxiety Current Visit: Yes Status: Chronic Code(s): F41.8 - OTHER SPECIFIED ANXIETY DISORDERS (5) Migraines Current Visit: Yes Status: Chronic Code(s): G43.909 - MIGRAINE, UNSP, NOT INTRACTABLE, WITHOUT STATUS MIGRAINOSUS (6) Seizures Current Visit: Yes Status: Chronic Code(s): R56.9 - UNSPECIFIED CONVULSIONS (7) HTN (hypertension) Current Visit: Yes Status: Chronic Code(s): I10 - ESSENTIAL (PRIMARY) HYPERTENSION (8) Panic disorder Current Visit: Yes Status: Chronic Code(s): F41.0 - PANIC DISORDER [EPISODIC PAROXYSMAL ANXIETY] (9) Obesity (BMI 30.0-34.9) Current Visit: Yes Status: Chronic Code(s): E66.811 - OBESITY, CLASS 1 (10) Smoker Current Visit: Yes Status: Chronic Assessment & Plan: (1) Cholelithiasis Current Visit: Yes Status: Acute Qualifiers: Cholelithiasis location: gallbladder Cholecystitis presence: with cholecyst itis Cholecystitis acuity: acute Biliary obstruction: without biliary obstruction Qualified Code(s): K80.00 - Calculus of gallbladder with acute cholecystitis without obstruction Assessment & Plan: - As seen on CT abd/pelvis - WBC 11.5 - GS consulted in ER- will see pt tomorrow per ER nurse - IV antibiotics and IVF - Possible US tomorrow if not taken to surgery today - IV pain meds PRN - IV antiemetics - NPO after midnight - Clear liquid diet for now - CBC, CMP reviewed - Pt received Zosyn in ER but is allergic- no allergic reaction so far- nurse to continue to monitor. 09/24 - CBC, CMP reviewed - WBC WNL - NPO - GS eval for possible surgery today - GB US- pending - IV antibiotics - Narcotic pain meds PRN IV (2) Hepatomegaly Current Visit: Yes Status: Acute Assessment & Plan: - as seen on CT - F/U OP with PCP for further evaluation - AST/ ALT WNL Code(s): R16.0 - HEPATOMEGALY, NOT ELSEWHERE CLASSIFIED (3) D-dimer, elevated Current Visit: Yes Status: Acute Assessment & Plan: - D-Dimer 0.69 - CT chest with PE protocol in AM -as she had contrast today and cannot have another imaging with contrast per radiology protocol 09/24 - CT with PE protocol- pending Code(s): R79.89 - OTHER SPECIFIED ABNORMAL FINDINGS OF BLOOD CHEMISTRY (4) Depression with anxiety Current Visit: Yes Status: Chronic Assessment & Plan: - Stopped taking Vraylar d/t cost - Has an upcoming appointment with PCP and will discuss - Also willing to go to [facility] [place] Code(s): F41.8 - OTHER SPECIFIED ANXIETY DISORDERS (5) Migraines Current Visit: Yes Status: Chronic Assessment & Plan: - continue propanolol - Pt reports + H/A today 2/24 - H/A again today- nurse gave tylenol Code(s): G43.909 - MIGRAINE, UNSP, NOT INTRACTABLE, WITHOUT STATUS MIGRAINOSUS (6) Seizures Current Visit: Yes Status: Chronic Assessment & Plan: - Pt reports she has not had a seizure since she was young and is not taking medication for this dx Code(s): R56.9 - UNSPECIFIED CONVULSIONS (7) HTN (hypertension) Current Visit: Yes Status: Chronic Assessment & Plan: - BP stable - Continue home med Code(s): I10 - ESSENTIAL (PRIMARY) HYPERTENSION (8) Panic disorder Current Visit: Yes Status: Chronic Assessment & Plan: - see depression/anxiety plan above Code(s): F41.0 - PANIC DISORDER [EPISODIC PAROXYSMAL ANXIETY] (9) Obesity (BMI 30.0-34.9) Current Visit: Yes Status: Chronic Assessment & Plan: - advised diet and exercise control Code(s): E66.811 - OBESITY, CLASS 1 (10) Smoker Current Visit: Yes Status: Chronic Assessment & Plan: - Advised cessation - Nicotine patch VTE: SCD's PPI: protonix Next of KIN: S/O D/C plan: 1-2 days Code status: Full Code(s): F17.200 - NICOTINE DEPENDENCE, UNSPECIFIED, UNCOMPLICATED Code(s): F17.200 - NICOTINE DEPENDENCE, UNSPECIFIED, UNCOMPLICATED
--- NOTE | 2024-09-24 09:34 | XRAY ---
Indication: Elevated d-dimer. Pulmonary embolus. Multiple contiguous axial images obtained through the chest using 80 cc Isovue 370 contrast and PE protocol. Comparison: None Good opacification pulmonary arteries including lobar and segmental branches. No pulmonary embolus. Heart not enlarged. Aorta is normal in course and caliber. Small right hilar calcified nodes. No pathologic mediastinal/hilar lymphadenopathy. Lungs demonstrate small posterior right lower lobe calcified granuloma and minimal bibasilar subsegmental atelectasis/scarring. No suspicious pulmonary mass/nodule, infiltrate, or effusion. Bony thorax intact. CT abdomen/pelvis reported one day earlier. Impression: Normal CT chest pulmonary embolus exam. Incidental old granulomatous disease.
[2024-09-24] MEDS ORDERED: NON-FORMULARY ITEM (Losartan Potassium [Losartan Potassium] 25 MG Tablet) PO SCH (10:00)
--- NOTE | 2024-09-24 11:04 | XRAY ---
Indication: Cholelithiasis. Two-dimensional gallbladder sonogram performed. Comparison: None Gallbladder normally distended without gallstones, wall thickening, or pericholecystic fluid. Common bile duct measures 3.7 mm. No intrahepatic biliary distention. Incidental 20.7 cm hepatomegaly. Raining visualized liver, pancreas, and right kidney are sonographically unremarkable. Right kidney measures 11.9 x 5.0 x 5.8 cm. Impression: Hepatomegaly. Otherwise negative gallbladder sonogram.
[2024-09-24 15:38] VITALS: BP 152/70; PULSE 64; TEMP 97.7; O2SAT 98
[2024-09-24] MEDS: Mylicon 80MG PO SCH (15:38)
--- NOTE | 2024-09-24 16:45 | XRAY ---
Indication: Back pain. Multiple contiguous axial images obtained through thoracic spine. Sagittal and coronal reformatted images obtained. Comparison: CT chest taken earlier in the day. Again no acute fracture, suspicious bony lesions, or spinal canal stenosis. Stable very minimal T6-T9 degenerative vacuum disc phenomena. Sagittal and coronal reformatted images demonstrates normal alignment with vertebral body heights/disc spaces maintained. CT chest reported separately. Impression: Compared to same day CT chest exam, stable T6-T9 degenerative vacuum disc phenomena. Remaining CT thoracic spine continues to be normal.
--- NOTE | 2024-09-24 16:47 | XRAY ---
Indication: Back pain. Multiple contiguous axial images obtained through the lumbar spine. Sagittal and coronal reformatted images obtained. Comparison: CT abdomen/pelvis 1 day earlier. Stable minimal broad-based L5-S1 disc disc bulge. No acute fracture, suspicious bony lesions, or spinal canal stenosis. Facets are symmetric. Sagittal and coronal reformatted images again demonstrates normal alignment. Stable minimal L5-S1 disc space narrowing. CT abdomen/pelvis reported separately. Impression: No change compared to CT abdomen/pelvis 1 day earlier. Stable minimal L5-S1 degenerative disc disease. Remaining CT lumbar spine continues to be normal.
--- NOTE | 2024-09-24 17:46 | PCM.DS ---
Discharge Summary Date of Admission: 09/23/24 09:54 Date of Discharge: 09/24/24 Admitting Physician: JAIDEN MARIEE MD Consults: Consults on Case 09/23/24 17:22 Consult Surgery ROUTINE 09/24/24 12:04 Case Management [facility] DC Needs Assessment ROUTINE 09/24/24 12:07 ACO [facility] Referral ROUTINE Primary Care Provider: ALINA FONSECA MD Allergies Allergies cefaclor [From Ceclor] Allergy (Verified 09/23/24 10:00) Hives Penicillins Allergy (Verified 09/23/24 10:00) Hives Sulfa (Sulfonamide Antibiotics) Allergy (Verified 09/23/24 10:00) [facility] Summary - Hospital Course Hospital Course: 09/23/23 is a 44 year old female with PMHX of daily smoking, migraines, seizures, hypertension, asthma, anxiety, depression, panic disorder, a heart murmur, obesity, and pre-diabetes. The patient presented to the ER today with a 2-day history of what she describes as back pain, which is actually more localized in the epigastrium and radiates around her trunk. She reports that deep breathing, particularly taking deep breaths, worsens the pain. The pain is described as tight and stabbing, radiating from the low thoracic region up towards the cervical area, following the distribution of the erector muscles. Additionally, she has some epigastric discomfort, which she describes as a band- like sensation around her diaphragm. This is a new symptom for her, as she has never experienced anything like it before. The pain started approximately 2 days ago and has been progressively worsening. The patient denies any vomiting, although she does experience occasional nausea. She has not had diarrhea or similar gastrointestinal symptoms. Eating does not seem to aggravate the pain, with deep breaths being the main trigger for intensifying the discomfort. A CT of the abdomen and pelvis revealed no acute intra-abdominal pathology, but it did suggest suspected cholelithiasis, with an ultrasound recommended for further evaluation. The scan also showed moderate hepatomegaly. Dr. Salgado was consulted by the ER physician and is willing to assist with the patients case for possible cholecystitis. The plan is to initiate IV antibiotics per surgery protocol and start intravenous fluids. However, an ultrasound cannot be performed at this facility over the weekend. 09/24/24 Patient remains resting in bed and continues to experience abdominal pain, rated 6/10, described as sharp and aching under the bilateral rib cage this morning. Pain medications provide relief, though movement exacerbates the discomfort. She is scheduled for a CT chest with PE protocol today to rule out pulmonary embolism (PE), as her D-dimer was slightly elevated on admission. Additionally, a gallbladder ultrasound (GB US) is planned. Pending these results, surgery will determine the need for a cholecystectomy. IV fluids, IV antibiotics, and IV narcotic pain medications PRN are to be continued. The CT chest was negative for PE, and the gallbladder ultrasound showed no signs of acute cholelithiasis. Surgery was consulted and determined that her pain is not related to the gallbladder, recommending further evaluation for potential back-related pain. A lumbar and thoracic CT was ordered, revealing chronic findings. She has no bowel or bladder dysfunction. By the afternoon, her pain had improved, and she had not requested pain medication since the morning. She expressed a desire to be discharged. After discussing her case with Dr. Yousif, discharge was deemed appropriate with outpatient follow-up. The patient was advised to follow up with her primary care provider (PCP) as scheduled this week and to schedule an appointment with neurosurgery for further evaluation of her lumbar CT results. Additionally, she was instructed to seek care at a hospital with GI services if her abdominal symptoms return. A HIDA scan may be beneficial, but she declined this option at this time. - Vitals & Intake/Output Vital Signs: Vital Signs Temperature 97.7 F 09/24/24 15:37 Pulse Rate 64 09/24/24 15:37 Respiratory Rate 16 09/24/24 15:37 Blood Pressure 152/70 09/24/24 15:37 O2 Sat by Pulse Oximetry 98 09/24/24 15:37 Intake & Output: Intake & Output 09/22/24 09/23/24 09/24/24 09/25/24 11:59 11:59 11:59 11:59 Intake Total 2806 250 Balance 2806 250 Weight 77.6 kg 77.5 kg - Lab Result Diagrams: 09/24/24 04:15 09/24/24 04:15 Lab Results-Last 24 Hrs: Lab Results-Last 24 Hours 09/24/24 09/24/24 Range/Units 04:15 04:15 WBC 8.4 (3.98-10.04) x10^3/uL RBC 3.98 (3.93-5.22) x10^6/uL Hgb 10.1 L (11.2-15.7) g/dL Hct 32.5 L (34.1-44.9) % MCV 81.7 (79.4-94.8) fL MCH 25.4 L (25.6-32.2) pg MCHC 31.1 L (32.2-35.5) g/dL RDW 15.3 H (11.7-14.4) % Plt Count 301 (182-369) x10^3/uL MPV 10.7 (9.4-12.3) fL Sodium 137 (135-145) mmol/L Potassium 4.2 (3.5-5.1) mmol/L Chloride 105 (98-107) mmol/L Carbon Dioxide 25 (22-30) mmol/L Anion Gap 11.0 (5-15) MEQ/L BUN 7 (7-17) mg/dL Creatinine 0.51 L (0.52-1.04) mg/dL Estimated GFR 116.5 ML/MIN Glucose 96 (74-106) mg/dL Calcium 8.6 (8.4-10.2) mg/dL Total Bilirubin 0.40 (0.2-1.3) mg/dL AST 23 (14-36) U/L ALT 19 (0-35) U/L Alkaline Phosphatase 74 (38-126) U/L Serum Total Protein 6.5 (6.3-8.2) g/dL Albumin 3.5 (3.5-5.0) g/dL - Radiology Exams Ordered Rad Exams-Entire Visit: Radiology Procedures Category Date Time Status ABDOMEN AND PELVIS W CONTRAST [CT] Stat Exams 09/23/24 06:02 Completed CHEST 1 VIEW (PORTABLE) Stat Exams 09/23/24 06:03 Completed CHEST WITH CONTRAST [CT] Routine Exams 09/24/24 08:00 Completed GALLBLADDER [US] Routine Exams 09/24/24 08:00 Completed LUMBAR SPINE W/O [CT] Urgent Exams 09/24/24 14:51 Completed THORACIC SPINE W/O CONTRAST [CT] Urgent Exams 09/24/24 14:51 Completed - Procedures and Test Procedures and Tests throughout Hospitalization: Therapy Orders & Screens 09/23/24 23:08 Oxygen Nasal Cannula 2 lpm Comment: Diagnosis: cholelithiasis Discharge Exam General Appearance: no apparent distress, alert, obese Neurologic Exam: alert, oriented x 3, cooperative, normal mood/affect, nml cerebellar function, sensation nml, No motor deficits Eye Exam: PERRL, EOMI, eyes nml inspection Ears, Nose, Throat Exam: normal ENT inspection, pharynx normal, moist mucous membranes Neck Exam: normal inspection, non-tender, supple, full range of motion Respiratory Exam: normal breath sounds, lungs clear, No respiratory distress Cardiovascular Exam: regular rate/rhythm, normal heart sounds Gastrointestinal/Abdomen Exam: soft, No tenderness, No mass Pelvic Exam: deferred Rectal Exam: deferred Back Exam: normal inspection, normal range of motion, No CVA tenderness, No vertebral tenderness Extremity Exam: normal inspection, normal range of motion Skin Exam: normal color, warm, dry Final Diagnosis/Problem List - Final Discharge Diagnosis/Problem (1) Cholelithiasis Current Visit: Yes Status: Acute (2) Hepatomegaly Current Visit: Yes Status: Acute Code(s): R16.0 - HEPATOMEGALY, NOT ELSEWHERE CLASSIFIED (3) D-dimer, elevated Current Visit: Yes Status: Acute Code(s): R79.89 - OTHER SPECIFIED ABNORMAL FINDINGS OF BLOOD CHEMISTRY (4) Depression with anxiety Current Visit: Yes Status: Chronic Code(s): F41.8 - OTHER SPECIFIED ANXIETY DISORDERS (5) Migraines Current Visit: Yes Status: Chronic Code(s): G43.909 - MIGRAINE, UNSP, NOT INTRACTABLE, WITHOUT STATUS MIGRAINOSUS (6) Seizures Current Visit: Yes Status: Chronic Code(s): R56.9 - UNSPECIFIED CONVULSIONS (7) HTN (hypertension) Current Visit: Yes Status: Chronic Code(s): I10 - ESSENTIAL (PRIMARY) HYPERTENSION (8) Panic disorder Current Visit: Yes Status: Chronic Code(s): F41.0 - PANIC DISORDER [EPISODIC PAROXYSMAL ANXIETY] (9) Obesity (BMI 30.0-34.9) Current Visit: Yes Status: Chronic Code(s): E66.811 - OBESITY, CLASS 1 (10) Smoker Current Visit: Yes Status: Chronic Assessment & Plan: (1) Cholelithiasis Current Visit: Yes Status: Acute Qualifiers: Cholelithiasis location: gallbladder Cholecystitis presence: with cholecystitis Cholecystitis acuity: acute Biliary obstruction: without biliary obstruction Qualified Code(s): K80.00 - Calculus of gallbladder with acute cholecystitis without obstruction Assessment & Plan: - As seen on CT abd/pelvis - WBC 11.5 - GS consulted in ER- will see pt tomorrow per ER nurse - IV antibiotics and IVF - Possible US tomorrow if not taken to surgery today - IV pain meds PRN - IV antiemetics - NPO after midnight - Clear liquid diet for now - CBC, CMP reviewed - Pt received Zosyn in ER but is allergic- no allergic reaction so far- nurse to continue to monitor. 09/24 - CBC, CMP reviewed - WBC WNL - NPO- resumed regular diet after US negative - GS eval for possible surgery today- surgery not indicated per GB US results - GB US- negative - IV antibiotics - Narcotic pain meds PRN IV - CT lumbar and thoracic spine show chronic concerns- no loss of bowel or bladder - Consider HIDA scan - wants to d/c today - F/u with PCP today - Will need OP f/u with neurosurgery, PCP can make OP appointment- it is now almost 6pm so we are unable to make an appointment for her at this time. - Gas-x provided (2) Hepatomegaly Current Visit: Yes Status: Acute Assessment & Plan: - as seen on CT - F/U OP with PCP for further evaluation - AST/ ALT WNL Code(s): R16.0 - HEPATOMEGALY, NOT ELSEWHERE CLASSIFIED (3) D-dimer, elevated Current Visit: Yes Status: Acute Assessment & Plan: - D-Dimer 0.69 - CT chest with PE protocol in AM -as she had contrast today and cannot have another imaging with contrast per radiology protocol 09/24 - CT with PE protocol-negative for PE Code(s): R79.89 - OTHER SPECIFIED ABNORMAL FINDINGS OF BLOOD CHEMISTRY (4) Depression with anxiety Current Visit: Yes Status: Chronic Assessment & Plan: - Stopped taking Vraylar d/t cost - Has an upcoming appointment with PCP and will discuss - Also willing to go to [facility] Code(s): F41.8 - OTHER SPECIFIED ANXIETY DISORDERS (5) Migraines Current Visit: Yes Status: Chronic Assessment & Plan: - continue propanolol - Pt reports + H/A today 09/24 - H/A again today- nurse gave tylenol Code(s): G43.909 - MIGRAINE, UNSP, NOT INTRACTABLE, WITHOUT STATUS MIGRAINOSUS (6) Seizures Current Visit: Yes Status: Chronic Assessment & Plan: - Pt reports she has not had a seizure since she was young and is not taking medication for this dx Code(s): R56.9 - UNSPECIFIED CONVULSIONS (7) HTN (hypertension) Current Visit: Yes Status: Chronic Assessment & Plan: - BP stable - Continue home med Code(s): I10 - ESSENTIAL (PRIMARY) HYPERTENSION (8) Panic disorder Current Visit: Yes Status: Chronic Assessment & Plan: - see depression/anxiety plan above Code(s): F41.0 - PANIC DISORDER [EPISODIC PAROXYSMAL ANXIETY] (9) Obesity (BMI 30.0-34.9) Current Visit: Yes Status: Chronic Assessment & Plan: - advised diet and exercise control Code(s): E66.811 - OBESITY, CLASS 1 (10) Smoker Current Visit: Yes Status: Chronic Assessment & Plan: - Advised cessation - Nicotine patch Code(s): F17.200 - NICOTINE DEPENDENCE, UNSPECIFIED, UNCOMPLICATED - Discharge Discharge Date: 09/24/24 Disposition: Home, Self-Care Condition: Stable Prescriptions: Continue Losartan Potassium 25 mg PO DAILY Propranolol HCl 10 mg PO BID PRN PRN PRN Reason: Anxiety Follow up with: ALINA FONSECA MD [Primary Care Provider] -
--- NOTE | 2024-09-25 12:47 | PROG NOTE ---
Patient still has persistent back pain that is bothering her the most. She is not having significant abdominal pain. She is actually asking and wanting to eat right now. Her labs are okay according to the staff. Her vitals are stable. She had an ultrasound. Although they were not sure if she had any gallstones on the CAT scan yesterday, she had an ultrasound today that showed no gallstones, no wall thickening, no signs of cholecystitis. She had a CT that was negative. She has had CT scan that was negative for PE apparently. Otherwise, she is wanting to eat at this time. She is hemodynamically stable. She does not need any emergent surgery. The majority of her pain has been complaining it was in the back the whole time. I might consider doing an MRI of the back or further workup to be sure she does not have some occult back infection or other etiology. Her symptoms are unrelated to eating and she has no wall thickening to suggest any cholecystitis. Could check HIDA scan, although probably would be low yield as she has been getting several narcotics for her back. Any ejection fraction probably has a good chance of not being very accurate. Otherwise, at this time no emergent general surgery was necessary at this time. If she is still here tomorrow, one of us will call and check on her but otherwise continue further workup per the medical service at this point. Again, ultrasound no gallstones, no wall thickening, no signs of acute cholecystitis. No elevation in her liver function tests. No need for emergent general surgery or intervention at this time.
== END 2024-09-24 18:30 | disposition home or self-care (01) ==
LOC: ED 05:12 → MED SURG 09:54
PROVIDERS: ADMIT Internal Medicine; ATTEND Internal Medicine
DX: K80.00 Calculus of gallbladder with acute cholecystitis without obstruction (principal); R16.0 Hepatomegaly, not elsewhere classified; R79.89 Other specified abnormal findings of blood chemistry; F41.8 Other specified anxiety disorders; G43.909 Migraine, unspecified, not intractable, without status migrainosus; R56.9 Unspecified convulsions; I10 Essential (primary) hypertension; F41.0 Panic disorder [episodic paroxysmal anxiety]; R73.03 Prediabetes; E66.811 Obesity, class 1; F17.200 Nicotine dependence, unspecified, uncomplicated; Z79.899 Other long term (current) drug therapy
CPT/HCPCS: 0241U; 36415; 71045; 71260; 72128; 72131; 74177; 76705; 80053; 81001; 83690; 84484; 85025; 85027; 85379; 93005; 94760; 96374; 96375; 99285; Q3014; J1956; J2270; J2405; A9270-GY